=== PATIENT | female | born 1990 | race Caucasian/White ===

== ENCOUNTER 2018-06-26 11:55 | Emergency (ER) | payer SELFPAY ==
[~2018-06-26] VITALS: Ht 152.4 cm; Wt 122.5 kg
[~2018-06-26 11:55] MED LIST: CEPH500 PO; Cleocin HCl300 MG PO; Flagyl500 MG PO; Keflex250 MG PO; LAMO100 PO; METF500 PO; NAPR500 PO; OXYACE5T PO; PANT20 PO; PROM25 PO; Percocet 5-3251 EACH PO; Ultram50 MG PO; Verotin-Gr Cap1 EACH PO; Vibramycin100 MG PO; ZIPR20 PO; Zofran Odt4 MG SL; Zofran4 MG PO; [UNRECOGNIZED DRUG - REMARK]
[2018-06-26] MEDS ORDERED: BENZ100A PO (12:50)
== END 2018-06-26 12:56 | disposition home or self-care (01) ==
LOC: ER 11:55
DX: J40 Bronchitis, not specified as acute or chronic (principal); Z88.5 Allergy status to narcotic agent
CPT/HCPCS: 71046; 99283-25

== ENCOUNTER 2018-10-31 07:51 | Emergency (ER) | payer OTHER ==
[~2018-10-31] VITALS: Ht 157.5 cm; Wt 129.3 kg
[~2018-10-31 07:51] MED LIST changes: +BENZ100A PO
[2018-10-31 08:28] LABS: Source, Urine Clean Catch
[2018-10-31] MEDS ORDERED: Amoxicillin500 MG PO (08:29)
[2018-10-31] MEDS ORDERED: ONDA4ODT MM (08:29)
[2018-10-31 08:45] LABS: Bilirubin, Urine Neg (Neg); Blood, Urine Neg (Neg); Glucose Qualitative, Urine Neg (Neg); Ketones, Urine Neg (Neg); Leukocyte Esterase, Urine Neg (Neg); Nitrite, Urine Neg (Neg); Protein, Urine Neg (Neg); Specific Gravity, Urine 1.015 (1.003-1.022); Urobilinogen, Urine NORM (Normal)
[2018-10-31 08:55] LABS: Appearance, Urine Clear (Clear); Color, Urine Yellow (P-Yellow)
[2018-10-31] MEDS ORDERED: PROM25 PO (08:57)
== END 2018-10-31 09:08 | disposition home or self-care (01) ==
LOC: ER 07:51
PROVIDERS: Physician Assistant
DX: K02.9 Dental caries, unspecified (principal); Z88.5 Allergy status to narcotic agent; F31.9 Bipolar disorder, unspecified; F17.290 Nicotine dependence, other tobacco product, uncomplicated
CPT/HCPCS: 81003; 81025; 99283

== ENCOUNTER 2018-11-05 16:13 | Emergency (ER) | payer OTHER ==
[~2018-11-05] VITALS: Ht 157.5 cm; Wt 130.6 kg
[~2018-11-05 16:13] MED LIST changes: +Amoxicillin500 MG PO; +ONDA4ODT MM
[2018-11-05 17:09] LABS: BASOPHILS ABSOLUTE AUTO 0.08 K/mm3 (0.00-0.23); BASOPHILS PERCENT AUTO 1 % (0-2); EOSINOPHILS ABSOLUTE AUTO 0.07 K/mm3 (0.00-0.68); EOSINOPHILS PERCENT AUTO 0 % (0-6); Hematocrit 39.7 % (33.0-51.0); Hemoglobin 12.7 g/dL (11.5-16.0); IMMATURE GRAN ABSOLUTE AUTO 0.05 K/mm3 (0.00-0.10); IMMATURE GRAN PERCENT AUTO 0 % (0-1); LYMPHOCYTES ABSOLUTE AUTO 4.09 K/mm3 (0.84-5.20); LYMPHOCYTES PERCENT AUTO 26 % (21-46); MONOCYTES ABSOLUTE AUTO 0.81 K/mm3 (0.16-1.47); MONOCYTES PERCENT AUTO 5 % (4-13); Mean Corpuscular Volume 85 fL (80-100); Mean Platelet Volume 10.1 fL (9.1-12.4); NEUTROPHILS ABSOLUTE AUTO 10.73 K/mm3 (1.96-9.15); NEUTROPHILS PERCENT AUTO 68 % (41-73); Platelet Count 373 K/mm3 (150-400); RDW Coefficient Variation 13.6 % (11.7-14.2); RDW Standard Deviation 42.3 fL (35.1-46.3); White Blood Cell Count 15.83 K/mm3 (4.00-11.30)
[2018-11-05 17:32] LABS: Alanine Aminotransfer (ALT/SGP 75 U/L (12-78); Alk Phos 79 U/L (50-136); Anion Gap 8 mmol/L (6-16); Aspartate Aminotrans (AST/SGOT 33 U/L (12-37); Bilirubin, Total 0.3 mg/dL (0.1-1.0); Blood Urea Nitrogen 12 mg/dL (8-24); Bun/Creatinine Ratio 17.3 (12.0-20.0); CO2, Blood 23 mmol/L (21-32); Chloride, Blood 109 mmol/L (98-108); Creatinine, Blood 0.69 mg/dL (0.40-1.00); Globulin, Blood 3.9 g/dL (2.2-4.0); Glomerular Filtration Rate >60 (60-); Glucose, Blood 97 mg/dL (70-99); Potassium, Blood 3.6 mmol/L (3.5-5.5); Sodium, Blood 140 mmol/L (136-145); Total Protein, Blood 7.9 g/dL (6.4-8.2)
[2018-11-05] MEDS ORDERED: Augmentin 875-1 EACH PO (17:55)
[2018-11-05] MEDS ORDERED: METO10 PO (18:05)
== END 2018-11-05 18:24 | disposition home or self-care (01) ==
LOC: ER 16:13
PROVIDERS: Physician Assistant
DX: K04.7 Periapical abscess without sinus (principal); R11.0 Nausea; Z88.5 Allergy status to narcotic agent; Z79.899 Other long term (current) drug therapy; F31.9 Bipolar disorder, unspecified; F17.200 Nicotine dependence, unspecified, uncomplicated
CPT/HCPCS: 36415; 80053; 83690; 85025; 96374; 99283-25; J2405

== ENCOUNTER 2018-11-13 11:59 | Emergency (ER) | payer OTHER ==
[~2018-11-13] VITALS: Ht 170.2 cm; Wt 129.3 kg
[~2018-11-13 11:59] MED LIST changes: +Augmentin 875-1 EACH PO; +METO10 PO
[2018-11-13 12:41] LABS: Influenza A Positive (NEGATIVE); Influenza B Negative (NEGATIVE)
[2018-11-13] MEDS ORDERED: Cheratussin AC118 ML PO (13:07)
[2018-11-13] MEDS ORDERED: Tamiflu75 MG PO (13:07)
== END 2018-11-13 13:18 | disposition home or self-care (01) ==
LOC: ER 11:59
PROVIDERS: Physician Assistant
DX: J10.1 Influenza due to other identified influenza virus with other respiratory manifestations (principal); Z88.5 Allergy status to narcotic agent; Z79.899 Other long term (current) drug therapy; F31.9 Bipolar disorder, unspecified; F17.200 Nicotine dependence, unspecified, uncomplicated
CPT/HCPCS: 71046; 87804; 99283-25

== ENCOUNTER 2020-12-23 07:48 | Emergency (ER) | payer OTHER ==
[~2020-12-23] VITALS: Ht 152.4 cm; Wt 136.1 kg
[~2020-12-23 07:48] MED LIST changes: +Cheratussin AC118 ML PO; +Tamiflu75 MG PO
[2020-12-23] MEDS ORDERED: METF500 PO (08:02)
[2020-12-23] MEDS ORDERED: SPIR25 PO (08:03)
[2020-12-23] MEDS ORDERED: ONDA4ODT MM (08:13)
[2020-12-23] MEDS ORDERED: Cleocin HCl300 MG PO (08:13)
== END 2020-12-23 08:25 | disposition home or self-care (01) ==
LOC: ER 07:48
DX: K02.9 Dental caries, unspecified (principal); K08.89 Other specified disorders of teeth and supporting structures; F17.210 Nicotine dependence, cigarettes, uncomplicated; Z88.5 Allergy status to narcotic agent; Z79.84 Long term (current) use of oral hypoglycemic drugs
CPT/HCPCS: 99282; A9270

== ENCOUNTER 2021-09-18 09:14 | Emergency (ER) | payer OTHER ==
[~2021-09-18 09:14] MED LIST changes: +SPIR25 PO
== END 2021-09-18 09:55 | disposition left against medical advice (07) ==
LOC: ER 09:14
DX: Z53.21 Procedure and treatment not carried out due to patient leaving prior to being seen by health care provider (principal)

== ENCOUNTER → 2024-04-27 | Outpatient (CLI) | payer OTHER ==
[2024-04-27 13:41] LABS: Hematocrit 41.4 % (33.0-51.0); Hemoglobin 12.6 g/dL (11.5-16.0)
== END | disposition home or self-care (01) ==
LOC: LAB SHORT 11:49 → LAB 11:49
PROVIDERS: Registered Nurse Community Health
DX: Z34.93 Encounter for supervision of normal pregnancy, unspecified, third trimester (principal); Z3A.28 28 weeks gestation of pregnancy
CPT/HCPCS: 82950; 83036; 85014; 85018

== ENCOUNTER → 2024-06-20 | Outpatient (CLI) | payer OTHER | END | disposition home or self-care (01) | LOC: LAB SHORT 15:10 → LAB 15:10 | DX: Z34.93 Encounter for supervision of normal pregnancy, unspecified, third trimester (principal) | CPT/HCPCS: 87081; 87150 ==

== ENCOUNTER 2024-07-13 07:00 | Inpatient (IN) | payer OTHER ==
[2024-07-13] VITALS (17 sets, daily range): BP systolic 120–173; BP diastolic 57–91
[~2024-07-13] VITALS: Ht 157.5 cm; Wt 157.2 kg
[2024-07-13] MEDS ORDERED: Oxytocin 10 Unit / ML Vial IM PRN (07:25)
[2024-07-13] MEDS ORDERED: Lactated Ringer's 1,000 ML IV SCH ×3 (07:25→07:30)
[2024-07-13] MEDS ORDERED: OXYTOCIN/RINGER'S LACTATE 500 ML IV SCH (07:25)
[2024-07-13] MEDS ORDERED: Acetaminophen 500 MG Tab PO PRN (07:25)
[2024-07-13] MEDS ORDERED: Misoprostol 200 MCG Tab BC PRN (07:25)
[2024-07-13] MEDS ORDERED: Ondansetron HCl 2 MG / ML 2ML Vial IV PRN (07:25)
[2024-07-13] MEDS ORDERED: Lactated Ringer's 1,000 ML IV PRN (07:25)
[2024-07-13] MEDS ORDERED: Methylergonovine Maleate 0.2MG / ML 1ML Amp IM PRN (07:25)
[2024-07-13] MEDS ORDERED: Calcium Carbonate 500 MG Tab Chew PO PRN (07:25)
[2024-07-13] MEDS ORDERED: Misoprostol 200 MCG Tab PR PRN (07:25)
[2024-07-13] MEDS ORDERED: Carboprost Tromethamine 250 MCG/ML 1ML Amp IM PRN (07:25)
[2024-07-13] MEDS ORDERED: Tranexamic Acid 100 ML IV SCH (07:25)
[2024-07-13] MEDS ORDERED: OXYTOCIN/RINGER'S LACTATE 500 ML IV PRN (07:25)
[2024-07-13] MEDS ORDERED: FentaNYL 2mcg/ml-Bup 0.1% Epd 250 ML EPI PRN (07:30)
[2024-07-13] MEDS ORDERED: ePHEDrine Sulfate 50 MG/ML 1ML Injection XX PRN (07:30)
[2024-07-13] MEDS ORDERED: Penicillin G Potassium 5,000,000 UNITS in NS 250 ML IV ONE (07:30)
[2024-07-13] MEDS ORDERED: FentaNYL Citrate 50 MCG/ML 2 ML Injection IV PRN (07:30)
[2024-07-13] MEDS ORDERED: PRENATAL TABLE1 EAC2 PO (07:39)
[2024-07-13] MEDS ORDERED: ASPI81CH PO (07:40)
[2024-07-13 07:51] LABS: BASOPHILS ABSOLUTE AUTO 0.04 K/mm3 (0.00-0.23); BASOPHILS PERCENT AUTO 0 % (0-2); EOSINOPHILS PERCENT AUTO 1 % (0-6); Hematocrit 36.4 % (33.0-51.0); Hemoglobin 12.2 g/dL (11.5-16.0); IMMATURE GRAN ABSOLUTE AUTO 0.05 K/mm3 (0.00-0.10); IMMATURE GRAN PERCENT AUTO 0 % (0-1); LYMPHOCYTES ABSOLUTE AUTO 1.81 K/mm3 (0.84-5.20); LYMPHOCYTES PERCENT AUTO 13 % (21-46); MONOCYTES ABSOLUTE AUTO 0.76 K/mm3 (0.16-1.47); MONOCYTES PERCENT AUTO 6 % (4-13); Mean Corpuscular HGB 27.9 pg (26.0-34.0); Mean Corpuscular HGB Conc 33.5 g/dL (31.5-36.5); Mean Corpuscular Volume 83 fL (80-100); Mean Platelet Volume 10.9 fL (9.1-12.4); NEUTROPHILS ABSOLUTE AUTO 10.79 K/mm3 (1.96-9.15); NEUTROPHILS PERCENT AUTO 80 % (41-73); Platelet Count 276 K/mm3 (150-400); RDW Coefficient Variation 14.6 % (11.7-14.2); RDW Standard Deviation 43.9 fL (35.1-46.3); Red Blood Cell Count 4.38 M/mm3 (3.80-5.20); White Blood Cell Count 13.55 K/mm3 (4.00-11.30)
[2024-07-13] MEDS ORDERED: Penicillin G Potassium 2,500,000 UNITS in Dextrose 5% 100 ML IV SCH (12:00)
[2024-07-13] MEDS ORDERED: NS 1,000 ML IV SCH (17:00)
[2024-07-13] MEDS ORDERED: NS 1,000 ML IV ONE (17:00)
[2024-07-14] VITALS (31 sets, daily range): BP systolic 110–159; BP diastolic 62–86
[2024-07-14] MEDS ORDERED: CeFAZolin Sodium 2,000 MG in NS 100 ML IV SCH (07:00)
[2024-07-14] MEDS ORDERED: Lactated Ringer's 1,000 ML IV SCH (07:00)
[2024-07-14] MEDS ORDERED: Azithromycin 500 MG in NS 250 ML IV SCH (07:00)
[2024-07-14] MEDS ORDERED: CeFAZolin Sodium 3,000 MG in NS 100 ML IV PRN (07:15)
[2024-07-14] MEDS ORDERED: Metoclopramide HCl 5MG / ML 2ML Vial ONE (09:38)
[2024-07-14] MEDS ORDERED: Citric Acid/Sodium Citrate 30 ML BTL ONE (09:39)
[2024-07-14] MEDS ORDERED: Famotidine 10 MG/ML 2ML Vial IV ONE (09:40)
[2024-07-14] MEDS ORDERED: Oxytocin 10 Unit / ML Vial ONE ×2 (09:44→10:34)
[2024-07-14] MEDS ORDERED: Ondansetron HCl 2 MG / ML 2ML Vial ONE (09:44)
[2024-07-14] MEDS ORDERED: Lidocaine HCl 2% 10 ML SDA ONE ×2 (09:44→11:10)
[2024-07-14] MEDS ORDERED: Dexamethasone Sod Phos 10 MG/ML 1ML VIAL ONE (09:44)
[2024-07-14] MEDS ORDERED: FentaNYL Citrate 50 MCG/ML 2 ML Injection ONE ×2 (09:45→11:05)
[2024-07-14] MEDS ORDERED: Phenylephrine HCl 100 MCG/ML-NS 10MLSYR (1MG/10ML) ONE (10:09)
[2024-07-14] MEDS ORDERED: Midazolam HCl 1MG / ML 2ML Vial ONE (10:35)
--- NOTE | 2024-07-14 10:51 | NUR ---
07/14/24 1051 Adela Price PRIOR TO ARRIVING TO THE OR PATIENT HAD HERRERA CATHETER PLACED. DRAINING YELLOW URINE. PRIOR TO ARRIVING TO OR, PATIENT HAD EPIDURAL PLACED. VIABLE BABY GIRL BORN AT 1029.
[2024-07-14] MEDS ORDERED: FentaNYL Citrate 50 MCG/ML 2 ML Injection IV PRN ×2 (10:55)
[2024-07-14] MEDS ORDERED: Prochlorperazine Edisylate 10 mg Vial IV PRN (10:55)
[2024-07-14] MEDS ORDERED: Ondansetron HCl 2 MG / ML 2ML Vial IV PRN (10:55)
[2024-07-14] MEDS ORDERED: HYDROmorphone HCl/Pf 1MG SYR IV PRN (10:55)
[2024-07-14 11:02] LABS: PCO2 Cord - Arterial 82.8 mmHg (40-50); PO2 Cord - Arterial < 14.0 mmHg (16-20)
[2024-07-14 11:03] LABS: PCO2 Cord - Venous 70.6 mmHg (40-50); PO2 Cord - Venous < 14.0 mmHg (28-32); pH Umbilical Cord - Venous 7.17 (7.26-7.35)
[2024-07-14] MEDS ORDERED: Citric Acid/Sodium Citrate 30 ML BTL PO ONE (11:05)
[2024-07-14] MEDS ORDERED: Metoclopramide HCl 5MG / ML 2ML Vial IV ONE (11:05)
[2024-07-14] MEDS ORDERED: Ketorolac Tromethamine 30mg Vial IV PRN (12:15)
[2024-07-14] MEDS ORDERED: HydrOXYzine Pamoate 25 MG Cap PO PRN (12:25)
[2024-07-14] MEDS ORDERED: Rho(D) Immune Globulin 300 MCG / SYR IM SCH (12:30)
[2024-07-14] MEDS ORDERED: Magnesium Hydroxide Conc 10 ML UDC PO PRN (12:30)
[2024-07-14] MEDS ORDERED: Simethicone 80 MG Chew PO PRN (12:30)
[2024-07-14] MEDS ORDERED: OxyCODONE 5 mg/Acetamin 325 mg TABLET PO PRN (12:30)
[2024-07-14] MEDS ORDERED: Acetaminophen 500 MG Tab PO PRN (12:30)
[2024-07-14] MEDS ORDERED: OxyCODONE HCL 5 MG TAB PO PRN (12:35)
[2024-07-14] MEDS ORDERED: Lanolin Cream TOP PRN (12:35)
[2024-07-14] MEDS ORDERED: FentaNYL Citrate 50 MCG/ML 2 ML Injection IV SCH (12:40)
[2024-07-14] MEDS ORDERED: Ketorolac Tromethamine 30mg Vial IV SCH (13:00)
[2024-07-14] MEDS ORDERED: Ibuprofen 400 MG Tab PO SCH (16:00)
[2024-07-14] MEDS ORDERED: Docusate Sodium 100 MG Cap PO SCH (21:00)
[2024-07-15 00:18] VITALS: BP 106/57
[2024-07-15 05:30] VITALS: BP 111/62
[2024-07-15 07:10] VITALS: BP 117/65
[2024-07-15 08:08] LABS: BASOPHILS ABSOLUTE AUTO 0.05 K/mm3 (0.00-0.23); BASOPHILS PERCENT AUTO 0 % (0-2); EOSINOPHILS ABSOLUTE AUTO 0.04 K/mm3 (0.00-0.68); EOSINOPHILS PERCENT AUTO 0 % (0-6); Hematocrit 24.9 % (33.0-51.0); Hemoglobin 8.2 g/dL (11.5-16.0); IMMATURE GRAN PERCENT AUTO 1 % (0-1); LYMPHOCYTES ABSOLUTE AUTO 2.11 K/mm3 (0.84-5.20); LYMPHOCYTES PERCENT AUTO 12 % (21-46); MONOCYTES ABSOLUTE AUTO 1.34 K/mm3 (0.16-1.47); MONOCYTES PERCENT AUTO 8 % (4-13); Mean Corpuscular HGB 27.7 pg (26.0-34.0); Mean Corpuscular HGB Conc 32.9 g/dL (31.5-36.5); Mean Corpuscular Volume 84 fL (80-100); Mean Platelet Volume 10.7 fL (9.1-12.4); NEUTROPHILS ABSOLUTE AUTO 13.42 K/mm3 (1.96-9.15); NEUTROPHILS PERCENT AUTO 79 % (41-73); Platelet Count 239 K/mm3 (150-400); RDW Coefficient Variation 14.9 % (11.7-14.2); RDW Standard Deviation 45.3 fL (35.1-46.3); Red Blood Cell Count 2.96 M/mm3 (3.80-5.20); White Blood Cell Count 17.06 K/mm3 (4.00-11.30)
[2024-07-15 08:35] LABS: Albumin, Blood 2.1 g/dL (3.4-5.0); Albumin/Globulin Ratio 0.6 (0.8-1.8); Bilirubin, Total 0.3 mg/dL (0.1-1.0); Bun/Creatinine Ratio 20.1 (12.0-20.0); Calcium, Blood 8.8 mg/dL (8.5-10.1); Creatinine, Blood 0.65 mg/dL (0.40-1.00); Globulin, Blood 3.3 g/dL (2.2-4.0); Potassium, Blood 4.1 mmol/L (3.5-5.5); Total Protein, Blood 5.4 g/dL (6.4-8.2)
[2024-07-15] MEDS ORDERED: Prenatal Vit/FE Fumarate/FA 1 Tab PO SCH (09:00)
[2024-07-15] MEDS ORDERED: Sod Ferric Gluc Complx/Sucrose 125 MG in NS 100 ML IV ONE (11:25)
[2024-07-15 11:44] VITALS: BP 112/58
[2024-07-15 19:59] VITALS: BP 117/61
[2024-07-15] MEDS ORDERED: MetFORMIN HCl 500 mg PO SCH (21:00)
[2024-07-16 00:02] VITALS: BP 113/59
[2024-07-16 04:55] VITALS: BP 128/63
[2024-07-16 08:23] VITALS: BP 135/71
[2024-07-16] MEDS ORDERED: Sod Ferric Gluc Complx/Sucrose 125 MG in NS 100 ML IV SCH (09:00)
[2024-07-16] MEDS ORDERED: IBUP800 PO (10:43)
[2024-07-16] MEDS ORDERED: ACET500 PO (10:43)
[2024-07-16] MEDS ORDERED: OXAYDO5 M1 PO (10:44)
== END 2024-07-16 11:50 | disposition home or self-care (01) | DRG 788 ==
LOC: OBS 07:00 → BC 07:02 → OBS 07:21 → BC 07:22
PROVIDERS: Family Medicine; ADMIT Registered Nurse Community Health
PROC: 10H07YZ Insertion of Other Device into Products of Conception, Via Natural or Artificial Opening (ICD-10-PCS; 2024-07-13)
PROC: 10D00Z1 Extraction of Products of Conception, Low, Open Approach (ICD-10-PCS; principal; 2024-07-14 09:00)
DX: O62.1 Secondary uterine inertia (principal); O99.214 Obesity complicating childbirth; O26.893 Other specified pregnancy related conditions, third trimester; O99.824 Streptococcus B carrier state complicating childbirth; E66.01 Morbid (severe) obesity due to excess calories; Z3A.39 39 weeks gestation of pregnancy; Z37.0 Single live birth; O99.284 Endocrine, nutritional and metabolic diseases complicating childbirth; E28.2 Polycystic ovarian syndrome; O76 Abnormality in fetal heart rate and rhythm complicating labor and delivery; Z67.41 Type O blood, Rh negative; O99.62 Diseases of the digestive system complicating childbirth; K21.9 Gastro-esophageal reflux disease without esophagitis
CPT/HCPCS: 36415; 51702; 59070; 80053; 82803; 85025; 86850; 86900; 86901; 86923; A9270; C1751; J0456; J0690; J1100; J1885; J2001; J2250; J2371; J2405; J2540; J2590; J2765; J2916; J3010; J7030; J7050; J7120

== ENCOUNTER → 2024-07-31 | Outpatient (CLI) | payer OTHER ==
[~2024-07-31] MED LIST changes: +ACET500 PO; +ASPI81CH PO; +IBUP800 PO; +OXAYDO5 M1 PO; +PRENATAL TABLE1 EAC2 PO
== END ==
LOC: LAB 19:43 → LAB SHORT 19:43
DX: T81.31XD Disruption of external operation (surgical) wound, not elsewhere classified, subsequent encounter (principal)
CPT/HCPCS: 87070; 87075; 87077; 87186; 87205